=== PATIENT | male | born 1955 | race Caucasian/White ===

== ENCOUNTER 2021-09-24 12:56 | Inpatient (IN) | payer OTHER ==
[2021-09-24] VITALS (10 sets, daily range): BP systolic 74–104; BP diastolic 30–70
[~2021-09-24] VITALS: Ht 182.9 cm; Wt 61.2 kg
--- NOTE | 2021-09-24 12:58 | NUR ---
PT BIBRA99 FROM HOME FOR WORSENING SOB AND NOTED 02 DESATURATION SINCE LAST NIGHT. HX PULMONARY FIBROSIS. 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 CONNECTED PT TO POX AND TELE MONITOR. SAFETY MEASURES IN PLACE. CALLED RT
--- NOTE | 2021-09-24 13:03 | NUR ---
PT SEEN AND EXAMINED BY .
--- NOTE | 2021-09-24 13:10 | NUR ---
IV LINE ESTABLSIHED.
--- NOTE | 2021-09-24 13:12 | NUR ---
CLOTH FINISHING RANGE TENDER AT PT'S BEDSIDE
--- NOTE | 2021-09-24 13:17 | NUR ---
RT AT BEDSIDE FOR BIPAP SET UP.
--- NOTE | 2021-09-24 13:19 | NUR ---
COVID ANTIGEN SWAB COLLECTED AND SENT TO LAB
--- NOTE | 2021-09-24 13:20 | NUR ---
ASSISTANT OPERATOR AT PT'S BEDSIDE
--- NOTE | 2021-09-24 13:24 | NUR ---
CALLED VINAY ALBARADO
--- NOTE | 2021-09-24 13:25 | NUR ---
RAC #18G S/L; PATENT AND INTACT
[2021-09-24 13:31] LABS: BASOPHILS # (AUTO) 0.1 K/uL (0.0-0.2); BASOPHILS % (AUTO) 0.6 % (0.0-2.0); HEMATOCRIT 46 % (39-51); HEMOGLOBIN 14.9 g/dL (13.5-17.5); LYMPHOCYTES # (AUTO) 0.6 K/uL (0.8-4.8); LYMPHOCYTES % (AUTO) 2.8 % (20.0-44.0); MEAN CORPUSCULAR HGB CONC 33 g/dl (31.0-36.0); MEAN CORPUSCULAR VOLUME 103 fL (80-96); MONOCYTES # (AUTO) 1.5 K/uL (0.1-1.30); MONOCYTES % (AUTO) 6.9 % (2.0-12.0); NEUTROPHILS # (AUTO) 18.9 K/uL (1.8-8.9); NEUTROPHILS % (AUTO) 89.7 % (43.0-81.0); RED BLOOD CELL COUNT(AUTO) 4.45 MIL/uL (4.5-6.0); WHITE BLOOD COUNT (AUTO) 21.1 K/uL (4.3-11.0)
--- NOTE | 2021-09-24 13:31 | NUR ---
AT BEDSIDE EXPLAINING TO THE PT AND FAMILY FOR POSSIBLE INTUBATION.
[2021-09-24] MEDS ORDERED: DILTIAZEM HCL 50 MG IV ONE (13:34)
[2021-09-24 13:35] LABS: PLATELET COUNT (AUTO) 419 K/uL (150-450)
--- NOTE | 2021-09-24 13:35 | NUR ---
CARDIZEM 10MG IVP GIVEN ORDERED BY .
[2021-09-24] MEDS ORDERED: MORPHINE SULFATE INJ 2 MG/ML DISP.SYRIN ONE (13:36)
--- NOTE | 2021-09-24 13:39 | NUR ---
MORPHINE 2 MG SLOW IVP GIVEN ORDERED BY .
--- NOTE | 2021-09-24 13:49 | NUR ---
CRITICAL RESULTS: TROPONIN 0.407. LACTIC ACID 14.0. WILVER GRIJALVA AWARE.
--- NOTE | 2021-09-24 13:49 | NUR ---
DR BURT (PULMONOLGIST) ON THE PHONE WITH DR PETTIT.
[2021-09-24 13:54] LABS: CALCIUM, SERUM 9.2 mg/dL (8.5-10.1); CARBON DIOXIDE 13 mmol/L (21-32); CHLORIDE 96 mmol/L (98-107); CREATININE 1.8 mg/dL (0.6-1.3); GLUCOSE 201 mg/dL (74-106); POTASSIUM 5.1 mmol/L (3.5-5.1); SODIUM SERUM 135 mmol/L (136-145); UREA NITROGEN, BLOOD 32 mg/dL (7-18)
[2021-09-24 13:59] LABS: ALANINE AMINOTRANSFERASE 193 U/L (12-78); ALKALINE PHOSPHATASE 164 U/L (46-116); ASPARTATE AMINOTRANSFERASE 236 U/L (15-37); BILIRUBIN,DIRECT 0.4 mg/dL (0.0-0.2); BILIRUBIN,TOTAL 1.5 mg/dL (0.2-1.0); TOTAL PROTEIN, SERUM 7.9 g/dL (6.4-8.2)
[2021-09-24] MEDS ORDERED: VANCOMYCIN 1 GM in IV D5W 250 ML IV ONE (14:00)
[2021-09-24] MEDS ORDERED: IV NS 0.9% 500 ML BAG IV ONE (14:00)
[2021-09-24] MEDS ORDERED: MORPHINE SULFATE INJ 10 MG/ML DISP.SYRIN IV ONE (14:00)
[2021-09-24] MEDS ORDERED: DILTIAZEM HCL 50 MG IV IV ONE (14:00)
[2021-09-24] MEDS ORDERED: PIPERACILLIN /TAZOBACTAM 3.375 G in IV D5W 50 ML IV ONE (14:00)
[2021-09-24 14:08] LABS: ALBUMIN 2.9 g/dL (3.4-5.0)
--- NOTE | 2021-09-24 14:21 | NUR ---
CALLED NURSING SUP REGARDING PT BED
[2021-09-24] MEDS ORDERED: FLUT16SP16 (14:26)
[2021-09-24] MEDS ORDERED: ATOR10TA PO (14:26)
[2021-09-24] MEDS ORDERED: ALBU8.5H8 IH (14:26)
[2021-09-24] MEDS ORDERED: LORA10TA68 PO (14:26)
[2021-09-24] MEDS ORDERED: NINT150C PO (14:26)
[2021-09-24] MEDS ORDERED: TACR100O2 TP (14:27)
[2021-09-24] MEDS ORDERED: KETO125S TP (14:27)
[2021-09-24] MEDS ORDERED: HYDR28.316 TD (14:27)
[2021-09-24] MEDS ORDERED: FINA1TAB PO (14:27)
--- NOTE | 2021-09-24 14:34 | NUR ---
ROOM 260
--- NOTE | 2021-09-24 14:35 | NUR ---
REPORT GIVEN TO EVGENY WEAVER FOR JANET
--- NOTE | 2021-09-24 14:45 | NUR ---
TICO MEDEIROS MD AT PT'S BEDSIDE
--- NOTE | 2021-09-24 14:50 | NUR ---
Manuela lizarraga in [facility] - 09/24/21 at 1528 by AGNES REPORT GIVEN TO ASFIA DEVRIES JANET
--- NOTE | 2021-09-24 15:29 | NUR ---
PT TRANSFERRED TO ICU 260 VIA ACLS PROTOCOL VSS ON O2 NRB 15LPM. ALL BELONGINGS WITH PT.
[2021-09-24] MEDS ORDERED: ACETAMINOPHEN 325 MG TABLET PO PRN (15:30)
[2021-09-24] MEDS ORDERED: MAGNESIUM HYDROXIDE 30 ML UDC PO PRN (15:30)
[2021-09-24] MEDS ORDERED: AMIODARONE 150 MG in IV D5W 100 ML IV ONE (15:30)
[2021-09-24] MEDS ORDERED: ONDANSETRON HCL/PF 4 MG/2 ML VIAL IVP PRN (15:30)
[2021-09-24] MEDS ORDERED: ZOLPIDEM TARTRATE 5 MG TABLET PO PRN (15:30)
[2021-09-24] MEDS ORDERED: Z GUARD REMEDY 2 OZ OINT TP PRN (15:30)
[2021-09-24] MEDS ORDERED: IV NS 0.9% 1,000 ML IV PRN (15:30)
[2021-09-24] MEDS ORDERED: AMIODARONE 450 MG in IV D5W 241 ML IV PRN (15:30)
--- NOTE | 2021-09-24 15:30 | NUR ---
ICU NOTES RECEIVED PT FROM ER VIA SHAYE. AWAKE. A/O X4. ON 15L OXYGEN VIA NON REBREATHER MASK. SOB NOTED. O2 SATURATION @88-90%. IV ACCESS ON R AC #18 AND R WRIST #18 BOTH INTACT, PATENT AND FLUSHED. AFIB ON THE MONITOR. HR @130-140S. SKIN IS INTACT. VACCINATIONS ALL UP TO DATE. MODERNA 2 DOSES. BELONGINGS LIST CHECKED AND SIGNED. SAFETY MEASURES IMPLEMENTED. CALL LIGHT WITHIN REACH. BED LOCKED AND IN LOWEST POSITION WITH SIDE RAILS UP X2. HOB ELEVATED. WILL CONTINUE TO MONITOR.
[2021-09-24 15:52] LABS: ABG BASE EXCESS -7.3 mmol/L; ABG OXYGEN SATURATION 77.1 % (92.0-98.5); ABG PCO2 34.1 mmHg (35.0-45.0); ABG PH 7.331 (7.350-7.450); AaDO2 632.9 mmHg; MetHb 0.1 % (0.0-1.5); O2Hb 76.3 % (94.0-97.0); SITE, ABG Right Radial; VENT MODE, BG NRB MASK 100%
[2021-09-24] MEDS ORDERED: methylPREDNISolone SOD SUCC 125 MG/2ML VIAL IV ONE (16:00)
[2021-09-24] MEDS ORDERED: LEVALBUTEROL HCL NEB 1.25 MG/0.5 ML VIAL.NEB NEB PRN (16:00)
--- NOTE | 2021-09-24 16:09 | NUR ---
RT PATIENT REC'D TRANSFER FROM ER. PATIENT IN RESP DISTRESS AND PLACED ON BIPAP 09/26 R4 100% PER MD ORDER. ALARMS CHECKED + AUDIBLE. PATIENT RESPONSIVE TO COMMANDS. PATIENT IS A DNI. Addendum: 09/24/21 at 1610 by JERARDO DUKES RT Amended: Links added.
--- NOTE | 2021-09-24 16:10 | NUR ---
RN NOTES DR. BURT AND DR. MEDEIROS MADE AWARE OF PT CURRENT STATUS. ORDERED TO SWITCH TO BIPAP. O2 SATURATION @99-100% ON BIPAP.
[2021-09-24 16:39] LABS: THYROID STIMULATING HORMONE 1.043 uIU/mL (0.358-3.74)
[2021-09-24] MEDS ORDERED: ENOXAPARIN SODIUM 60 MG/0.6 ML DISP.SYRIN SQ SCH (17:00)
[2021-09-24] MEDS ORDERED: IV LR 1000 ML 1,000 ML IV PRN (18:00)
--- NOTE | 2021-09-24 19:20 | NUR ---
RN NOTES PT UNRESPOSIVE. WEAK PULSE. PT IS DNI. CODE BLUE INITIATED. REFER TO CODE BLUE SHEET.
--- NOTE | 2021-09-24 19:28 | NUR ---
RN NOTES DR. MEDEIROS MADE AWARE. FAMILY AT BEDSIDE, DECIDED TO STOP THE CODE. NO PULSE AND ASYSTOLE ON THE MONITOR. PT PASSED AT 1928. DR. PAYAN AT BEDSIDE.
[2021-09-24] MEDS ORDERED: EPINEPHRINE (1:10,000) SYRINGE 1 MG/10 ML DISP.SYRIN IVP ONE (19:34)
[2021-09-24] MEDS ORDERED: PIPERACILLIN /TAZOBACTAM 3.375 G in IV D5W 50 ML IV SCH (20:00)
--- NOTE | 2021-09-24 20:23 | NUR ---
RN NOTES BELONGINGS SENT TO FAMILY MEMBER. CALLED [facility], .
[2021-09-24] MEDS ORDERED: ENOXAPARIN SODIUM 30 MG/0.3 ML DISP.SYRIN SQ SCH (21:00)
[2021-09-25] MEDS ORDERED: methylPREDNISolone SOD SUCC 125 MG/2ML VIAL IV SCH (05:00)
[2021-09-25] MEDS ORDERED: PANTOPRAZOLE 40 MG TABLET.DR PO SCH (07:30)
[2021-09-25] MEDS ORDERED: VANCOMYCIN 1 GM in IV D5W 250 ML IV SCH (16:00)
== END 2021-09-24 20:56 | DRG 871 ==
LOC: EDBD 13:02 → ER 13:02 → ICU 14:52
PROVIDERS: ADMIT Nurse Practitioner Family; ATTEND Nurse Practitioner Family
PROC: 5A09357 Assistance with Respiratory Ventilation, Less than 24 Consecutive Hours, Continuous Positive Airway Pressure (ICD-10-PCS; principal; 2021-09-24)
PROC: 5A12012 Performance of Cardiac Output, Single, Manual (ICD-10-PCS; 2021-09-24)
DX: A41.9 Sepsis, unspecified organism (principal); I21.A1 Myocardial infarction type 2; J18.9 Pneumonia, unspecified organism; J96.01 Acute respiratory failure with hypoxia; N17.0 Acute kidney failure with tubular necrosis; K72.00 Acute and subacute hepatic failure without coma; E44.0 Moderate protein-calorie malnutrition; E87.2 Acidosis; Z68.1 Body mass index [BMI] 19.9 or less, adult; I48.0 Paroxysmal atrial fibrillation; J84.10 Pulmonary fibrosis, unspecified; R65.20 Severe sepsis without septic shock; Z20.822 Contact with and (suspected) exposure to COVID-19; E88.09 Other disorders of plasma-protein metabolism, not elsewhere classified; Z66 Do not resuscitate; Z51.5 Encounter for palliative care
CPT/HCPCS: 36415; 36600; 71045-TC; 80048-TC; 80076-TC; 82962-TC; 83605-TC; 83880; 84443-TC; 84484-TC; 85025-TC; 85730-TC; 87040-TC; 87081-TC; 93307-TC; 93970-TC; C9803; G0378; J0171; J0282; J1650; J2270; J2543; J2930; J3370; J3490; J7030; J7040; J7060; J7120